=== PATIENT | female | born 1970 | race African-American/Black ===

== ENCOUNTER → 2016-09-05 | Outpatient (CLI) | payer MEDICARE, OTHER | LOC: OD 11:04 | PROVIDERS: ATTEND Nurse Practitioner Acute Care | DX: R10.9 Unspecified abdominal pain (principal) | CPT/HCPCS: 87086 ==

== ENCOUNTER → 2016-09-18 | Outpatient (CLI) | payer MEDICARE, OTHER | LOC: OD 08:58 | PROVIDERS: ATTEND Family Medicine | DX: M54.6 Pain in thoracic spine (principal) | CPT/HCPCS: 72070 ==

== ENCOUNTER → 2016-10-17 | Outpatient (CLI) | payer MEDICARE, OTHER ==
--- NOTE | 2016-10-17 12:53 | EKG REPORT ---
SEVERITY:- NORMAL ECG - SINUS RHYTHM : Confirmed by: Rasta Alcantara 17-Oct-2016 12:52:35
== END ==
LOC: OD 09:14
PROVIDERS: ATTEND Family Medicine
DX: Z01.818 Encounter for other preprocedural examination (principal)
CPT/HCPCS: 93005; 93010

== ENCOUNTER → 2017-01-21 | Outpatient (CLI) | payer MEDICARE, OTHER ==
[2017-01-21 12:51] LABS: ABSOLUTE BASOPHILS # (AUTO) 0.1 10^3/uL (0.0-0.2); ABSOLUTE EOSINOPHILS # (AUTO) 0.1 10^3/uL (0.0-0.6); ABSOLUTE LYMPHOCYTES (AUTO) 2.9 10^3/uL (0.5-4.7); ABSOLUTE MONOCYTES (AUTO) 0.4 10^3/uL (0.1-1.4); ABSOLUTE NEUT (AUTO) 2.3 10^3/uL (1.7-8.2); BASOPHILS % (AUTO) 1.1 % (0-2); EOSINOPHILS % (AUTO) 0.9 % (0-6); HEMATOCRIT 33.4 % (36.0-47.0); HEMOGLOBIN 10.7 g/dL (12.0-15.5); HGB HCT DIFFERENCE -1.3; LYMPHOCYTES % (AUTO) 50.8 % (13-45); MEAN CORPUSCULAR HEMOGLOBIN 26.2 pg (27.0-33.4); MEAN CORPUSCULAR HGB CONC 32.2 g/dL (32.0-36.0); MEAN CORPUSCULAR VOLUME 81 fl (80-97); MONOCYTES % (AUTO) 7.2 % (3-13); RED BLOOD COUNT 4.11 10^6/uL (3.72-5.28); RED CELL DISTRIBUTION WIDTH 13.4 % (11.5-14.0); WHITE BLOOD COUNT 5.7 10^3/uL (4.0-10.5)
[2017-01-21 13:05] LABS: ALANINE AMINOTRANSFERASE 71 U/L (9-52); ALBUMIN 4.2 g/dL (3.5-5.0); ALKALINE PHOSPHATASE 86 U/L (38-126); ANION GAP 11 (5-19); ASPARTATE AMINO TRANSFERASE 45 U/L (14-36); BILIRUBIN,DIRECT 0.4 mg/dL (0.0-0.4); BILIRUBIN,TOTAL 0.5 mg/dL (0.2-1.3); BLOOD UREA NITROGEN 16 mg/dL (7-20); CALCIUM 9.8 mg/dL (8.4-10.2); CARBON DIOXIDE 28 mmol/L (22-30); CHLORIDE 102 mmol/L (98-107); CREATININE RESULT 0.71 mg/dL (0.52-1.25); GLUCOSE 89 mg/dL (75-110); LIPASE 32.4 U/L (23-300); POTASSIUM 3.8 mmol/L (3.6-5.0); SODIUM 140.7 mmol/L (137-145); TOTAL PROTEIN 7.3 g/dL (6.3-8.2)
== END ==
LOC: OD 11:32
PROVIDERS: ATTEND Nurse Practitioner Acute Care
DX: R10.84 Generalized abdominal pain (principal)
CPT/HCPCS: 36415; 80053; 83690; 85025

== ENCOUNTER → 2017-05-02 | Outpatient (CLI) | payer MEDICARE, OTHER ==
--- NOTE | 2017-05-02 12:20 | WOMENS IMAGING REPORT ---
EXAM DESCRIPTION: BILAT SCREENING MAMMO W/CAD COMPLETED DATE/TIME: 05/02/2017 8:39 am REASON FOR STUDY: SCREENING MAMMO Z12.31 ENCNTR SCREEN MAMMOGRAM FOR MALIGNANT NEOPLASM OF NIGEL COMPARISON: Multiple mammograms since 2008 TECHNIQUE: Standard craniocaudal and mediolateral oblique views of each breast recorded using digita l acquisition. LIMITATIONS: None. FINDINGS: Findings present which are benign by mammographic criteria. No suspicious masses, calcifi cations or architectural distortion. Pertinent benign findings: Stable benign left retroareolar breast parenchymal calcification Read with the assistance of CAD. .[facility] - R2 Cenova Version 1.3 .[facility] Imaging - R2 Cenova Version 1.3 .[facility] - R2 Cenova Version 2.4 .[facility] - R2 Cenova Version 2.4 .[facility] - R2 Cost Control Supervisor Version 9.2 Benign mammographic findings may include one or more of the following: Smooth masses, popcorn/rim/co arse calcifications, asymmetries, post-procedure changes, and lesions with long-standing stability. IMPRESSION: BENIGN MAMMOGRAPHIC FINDINGS. BIRADS 2 BREAST DENSITY: b. There are scattered areas of fibroglandular density. BIRAD: 2 BENIGN FINDING(S) RECOMMENDATION: ROUTINE SCREENING Please consider bilateral screening tomosynthesis in May 2018 COMMENT: The patient has been notified of the results by letter per MQSA requirements. Additional no tification policies are in place for contacting patient with suspicious or incomplete findings. Quality ID #[id number]: The [employer] recommends an annual screening mammogram for women aged 40 years or over. This facility utilizes a reminder system to ensure that all patients receive reminder letters, and/or direct phone calls for appointments. This includes reminders for routine scr eening mammograms, diagnostic mammograms, or other Breast Imaging Interventions when appropriate. Th is patient will be placed in the appropriate reminder system. The [employer] (ACR) has developed recommendations for screening MRI of the breast s in certain patient populations, to be used in conjunction with mammography. Breast MRI surveillanc e may be appropriate for women with more than 20% lifetime risk of developing breast cancer as deter mined by genetic testing, significant family history of the disease, or history of mantle radiation f or Hodgkins Disease. ACR Practice Guidelines 2008. TECHNICAL DOCUMENTATION: FINDING NUMBER: (1) ASSESSMENT: (1) JOB ID: [id number] [employer])- All Rights Reserved
== END ==
LOC: WI 08:09
PROVIDERS: ATTEND Family Medicine
DX: Z12.31 Encounter for screening mammogram for malignant neoplasm of breast (principal)
CPT/HCPCS: 77067; G0202

== ENCOUNTER → 2017-10-17 | Outpatient (CLI) | payer MEDICARE, OTHER ==
--- NOTE | 2017-10-17 16:55 | RADIOLOGY REPORT (SQ) ---
EXAM DESCRIPTION: HAND RIGHT 3 VIEWS COMPLETED DATE/TIME: 10/17/2017 4:41 pm REASON FOR STUDY: PAIN IN RIGHT HAND M79.641 PAIN IN RIGHT HAND COMPARISON: None. EXAM PARAMETERS: NUMBER OF VIEWS: Three views. TECHNIQUE: AP, lateral and oblique radiographic images acquired of the right hand. LIMITATIONS: None. FINDINGS: MINERALIZATION: Normal. BONES: No acute fracture or dislocation. No worrisome bone lesions. JOINTS: Joint spaces maintained. SOFT TISSUES: No metallic foreign bodies. OTHER: No other significant finding. IMPRESSION: Nothing acute. No fracture identified. TECHNICAL DOCUMENTATION: JOB ID: [id number] [employer]- All Rights Reserved
== END ==
LOC: OD 16:27
PROVIDERS: ATTEND Family Medicine
DX: M79.641 Pain in right hand (principal)

== ENCOUNTER → 2018-02-24 | Outpatient (CLI) | payer MEDICARE, OTHER ==
--- NOTE | 2018-02-24 12:03 | RADIOLOGY REPORT (SQ) ---
EXAM DESCRIPTION: SHOULDER RIGHT 2 OR MORE VIEWS COMPLETED DATE/TIME: 02/24/2018 11:15 am REASON FOR STUDY: PAIN IN RIGHT SHOULDER M25.511 PAIN IN RIGHT SHOULDER COMPARISON: None. NUMBER OF VIEWS: Three views. TECHNIQUE: Internal rotation, external rotation, and Y view images acquired of the right shoulder. LIMITATIONS: None. FINDINGS: MINERALIZATION: Osteopenic BONES: No acute fracture or dislocation. No worrisome bone lesions. JOINTS: No acromioclavicular joint widening. No glenohumeral joint dislocation. VISUALIZED LUNGS AND RIBS: No pneumothorax. No rib fracture. SOFT TISSUES: No radiopaque foreign body. OTHER: No other significant finding. IMPRESSION: No acute fracture or malalignment. No narrowing of the subacromial space. No bulky bon y spurring. TECHNICAL DOCUMENTATION: JOB ID: [id number] [employer]- All Rights Reserved Reading location - IP/workstation name: [email or web address]
== END ==
LOC: OD 10:54
PROVIDERS: ATTEND Family Medicine
DX: M25.511 Pain in right shoulder (principal)

== ENCOUNTER → 2018-06-10 | Outpatient (CLI) | payer MEDICARE, OTHER ==
--- NOTE | 2018-06-10 16:59 | WOMENS IMAGING REPORT ---
EXAM DESCRIPTION: BILAT SCREENING MAMMO W/CAD COMPLETED DATE/TIME: 06/10/2018 7:47 am REASON FOR STUDY: SCREENING MAMMO Z12.31 ENCNTR SCREEN MAMMOGRAM FOR MALIGNANT NEOPLASM OF NIGEL COMPARISON: 2008 through 2016. TECHNIQUE: Standard craniocaudal and mediolateral oblique views of each breast recorded using digita l acquisition. LIMITATIONS: None. FINDINGS: No masses, calcifications or architectural distortion. No areas of suspicion. Read with the assistance of CAD. .[facility] - R2 Cenova Version 1.3 .[facility] Imaging - R2 Cenova Version 1.3 .[facility] - R2 Cenova Version 2.4 .[facility] [place] R2 Cenova Version 2.4 .[facility] - R2 Patient Transport Officer Version 9.2 IMPRESSION: NORMAL MAMMOGRAM. BIRADS 1. BREAST DENSITY: c. The breasts are heterogeneously dense, which may obscure small masses. BIRAD: 1 NEGATIVE RECOMMENDATION: ROUTINE SCREENING COMMENT: The patient has been notified of the results by letter per SA requirements. Additional no tification policies are in place for contacting patient with suspicious or incomplete findings. Quality ID #[id number]: The [employer] recommends an annual screening mammogram for women aged 40 years or over. This facility utilizes a reminder system to ensure that all patients receive reminder letters, and/or direct phone calls for appointments. This includes reminders for routine scr eening mammograms, diagnostic mammograms, or other Breast Imaging Interventions when appropriate. Th is patient will be placed in the appropriate reminder system. The [employer] (ACR) has developed recommendations for screening MRI of the breast s in certain patient populations, to be used in conjunction with mammography. Breast MRI surveillanc e may be appropriate for women with more than 20% lifetime risk of developing breast cancer as deter mined by genetic testing, significant family history of the disease, or history of mantle radiation f or Hodgkins Disease. ACR Practice Guidelines 2008. TECHNICAL DOCUMENTATION: FINDING NUMBER: (1) ASSESSMENT: (1) JOB ID: [id number] [employer]- All Rights Reserved Reading location - IP/workstation name: [email or web address]
== END ==
LOC: WI 07:35
PROVIDERS: ATTEND Family Medicine
DX: Z12.31 Encounter for screening mammogram for malignant neoplasm of breast (principal)
CPT/HCPCS: 77067

== ENCOUNTER → 2019-05-21 | Outpatient (CLI) | payer MEDICARE, OTHER ==
--- NOTE | 2019-05-21 13:08 | RADIOLOGY REPORT (SQ) ---
EXAM DESCRIPTION: NM BONE SCAN LIMITED COMPLETED DATE/TIME: 05/21/2019 12:53 pm REASON FOR STUDY: L4 LESION SEEN ON CT (05/14/19), LUMBAR PAIN (M54.5) M54.5 LOW BACK PAIN COMPARISON: Outside CT lumbar spine RADIONUCLIDE AND DOSE: 21.5 millicuries Tc99m HDP. The route of agent administration: Intravenous. ADDITIONAL DRUGS AND DOSES: None. TECHNIQUE: Routine delayed images at 3 hour post radionuclide injection acquired of the bony skeleto n including anterior and posterior whole-body projections and additional focused images as needed. LIMITATIONS: None. FINDINGS: BONES: Mild increased uptake at L5. This in keeping with facet arthropathy demonstrated o n outside CT. There is mild increased uptake in the mid dorsal spine this appears to be T7-T8 most l ikely degenerative as well review of plain films September 18 reveal degenerative changes throughout the dorsal spine no obvious compression. KIDNEYS: Symmetric excretion without obstruction. OTHER: No other significant finding. IMPRESSION: Uptake at L5 consistent with facet arthropathy. The uptake is symmetric bilaterally. Uptake in the mid dorsal spine most likely degenerative as well. If the patient has symptoms correla tion with MRI or CT is recommended for further evaluation. COMMENT: Quality measure 147: Current bone scan is compared with any available plain radiographs, p rior bone scans, and CT/MRI. TECHNICAL DOCUMENTATION: JOB ID: [id number] [employer]- All Rights Reserved Reading location - IP/workstation name: [email or web address]
== END ==
LOC: RAD 08:34
PROVIDERS: ATTEND Neurological Surgery
DX: M46.86 Other specified inflammatory spondylopathies, lumbar region (principal); M54.5 Low back pain
CPT/HCPCS: 78305; A9561; Q9969

== ENCOUNTER → 2019-08-27 | Outpatient (CLI) | payer MEDICARE, OTHER ==
--- NOTE | 2019-08-30 12:32 | WOMENS IMAGING REPORT ---
EXAM DESCRIPTION: BILAT SCREENING MAMMO W/CAD COMPLETED DATE/TIME: 08/27/2019 10:55 am REASON FOR STUDY: Z12.31 SCREENING MAMMO Z12.31 ENCNTR SCREEN MAMMOGRAM FOR MALIGNANT NEOPLASM OF B RE COMPARISON: 06/10/2018 and 05/02/2017. EXAM PARAMETERS: Standard craniocaudal and mediolateral oblique views of each breast recorded using digital acquisition. Read with the assistance of CAD. .[facility] - [email or web address] Educational Specialist Version 9.2 LIMITATIONS: None. FINDINGS: No suspicious masses, suspicious calcifications or architectural distortion. No areas of c oncern. IMPRESSION: Negative MAMMOGRAM. BIRADS 1 BREAST DENSITY: b. There are scattered areas of fibroglandular density. BIRAD: ASSESSMENT: 1 NEGATIVE RECOMMENDATION: ROUTINE SCREENING COMMENT: The patient has been notified of the results by letter per MQSA requirements. Additional no tification policies are in place for contacting patient with suspicious or incomplete findings. Quality ID #[id number]: The [employer] recommends an annual screening mammogram for women aged 40 years or over. This facility utilizes a reminder system to ensure that all patients receive reminder letters, and/or direct phone calls for appointments. This includes reminders for routine scr eening mammograms, diagnostic mammograms, or other Breast Imaging Interventions when appropriate. Th is patient will be placed in the appropriate reminder system. TECHNICAL DOCUMENTATION: FINDING NUMBER: (1) ASSESSMENT: (1) JOB ID: [id number] [employer] All Rights Reserved Reading location - IP/workstation name: [email or web address]
== END ==
LOC: WI 10:15
PROVIDERS: ATTEND Family Medicine
DX: Z12.31 Encounter for screening mammogram for malignant neoplasm of breast (principal)
CPT/HCPCS: 77067

== ENCOUNTER → 2019-09-13 | Outpatient (CLI) | payer MEDICARE, OTHER ==
--- NOTE | 2019-09-13 17:09 | RADIOLOGY REPORT (SQ) ---
EXAM DESCRIPTION: MRI HEAD COMBO COMPLETED DATE/TIME: 09/13/2019 4:56 pm REASON FOR STUDY: (Z86.011)PERSONAL HISTORY OF BENIGN NEOPLASM OF THE BRAIN Z86.011 PERSONAL HISTOR Y OF BENIGN NEOPLASM OF THE BRAIN COMPARISON: 12/25/2012, 09/09/2011 TECHNIQUE: Multiplanar imaging includes noncontrasted T1, T2, FLAIR, diffusion with ADC map and post gadolinium contrast T1 sequences. Images stored on PACS. CONTRAST TYPE AND DOSE: 10 mL mL Dotarem. RENAL FUNCTION: Not indicated. ACR Type II contrast agent associated with few, if any, unconfounded cases of NSF LIMITATIONS: None. FINDINGS: ANATOMY: No anomalies. Normal vascular flow voids. Pituitary fossa normal. CSF SPACES: Normal in size and contour. No hemorrhage. CEREBRUM: Sulci and gyri normal in size and contour. Normal white matter signal on FLAIR imaging. No evidence of hemorrhage, mass, or extraaxial fluid collection. No abnormal enhancement post contrast. POSTERIOR FOSSA: No signal alteration. No hemorrhage. No edema, masses, or mass effect. Internal jabari tory canals, cerebellopontine angles, mastoids normal. No enhancing lesions. No abnormal enhancement post contrast. Low lying right cerebellar tonsil is again noted. DIFFUSION IMAGING: Negative for acute or subacute infarction. ORBITS: No masses. Globes normal. PARANASAL SINUSES: Mucous retention cyst or polyp is again noted in the left maxillary sinus. OTHER: No other significant finding. IMPRESSION: 1. No acute intracranial event. 2. Stable low lying right cerebellar tonsil. 3. Stable mucous retention cyst or polyp in the left maxillary sinus. EVIDENCE OF ACUTE STROKE: NO. TECHNICAL DOCUMENTATION: JOB ID: [id number] [employer]- All Rights Reserved Reading location - IP/workstation name: [email or web address]-[email or web address]
== END ==
LOC: RAD 16:02
PROVIDERS: ATTEND Pain Medicine Pain Medicine
DX: J34.89 Other specified disorders of nose and nasal sinuses (principal); Z86.011 Personal history of benign neoplasm of the brain
CPT/HCPCS: 70553; A9576

== ENCOUNTER → 2020-09-21 | Outpatient (CLI) | payer MEDICARE, OTHER ==
--- OUTSIDE RECORDS SUMMARY | 2020-09-21 08:40 | XMS REPORT ---
:1970 Author Organization [facility] Address [facility] [place] [address] [place] [address] Care Team Providers Name Role Phone Sergio Carrillo Primary Care Physician Unavailable FRANCISCO MUÑOZ Attending Clinician Unavailable JERARDO GODFREY Attending Clinician Unavailable IRA MCGILL Attending Clinician Unavailable ESTEFANY Attending Clinician Unavailable Lorena Attending Clinician Unavailable Lorena Attending Clinician Unavailable Allergies, Adverse Reactions, Alerts Allergy Allergy Status Severity Reaction(s) Onset Inactive Treating C omments Name Type Date Date Clinician Iodinated Propensity Active Hives 2019-09 Contrast to adverse 1-04 Media reactions 00:00: to drug 00 Potassium Propensity Active Hives 1 to adverse 1-04 reactions 00:00: to drug 00 Ampicillin Propensity Active Rash 2020-0 to adverse 3-19 reactions 00:00: to drug 00 Camp And Propensity Active Rash 2020-0 Derivatives to adverse 3-19 reactions 00:00: to drug 00 Camp And Propensity Inactive Rash 2020-0 Derivatives to adverse 3-19 reactions 00:00: to drug 00 Shellfish Propensity Active Rash 2020-0 Containing to adverse 3-19 Products reactions 00:00: to drug 00 Ampicillin Allergy to Active Moderate Hives 2011-09 substance - 00:00: 00 Iodinated Allergy to Active Moderate Hives 2011-09 Contrast substance -15 Media 00:00: 00 Iodine Allergy to Active Moderate Hives 2011-09 substance 09-15 00:00: 00 Potassium Allergy to Active Moderate Hives 2011-09 substance 09-15 00:00: 00 Shellfish Allergy to Active Derived substance Medications Ordered Filled Start Stop Current Ordering Indication Dosage Frequency Signature Comments Components Medication Medication Date Date Medication? Clinician (SIG) Name Name tiZANidine 2020-0 Yes 2mg Q.[id number] Take 0.5- 1 (ZANAFLEX) 9-24 [id number] tablets 4 MG tablet 00:00: 3D (2-4 mg 00 total) by mouth 3 (three) times daily as needed HYDROcodone 2020-0 Yes 1{tbl} Q.48814929 Take 1 -acetaminop 8-31 [id number] tablet by hen (NORCO) 00:00: 3D mouth 3 5-325 mg 00 (three) tablet times daily as needed Patient taking due to surgery. predniSONE 2020-0 Yes 20mg Q.5D Take 20 mg (DELTASONE) 8-22 by mouth 2 20 MG 00:00: (two) tablet 00 times daily For 5 days. 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 2{each} QD Take 2 mium each by picolinate mouth once 2-100 daily gram-mcg Chew biotin 1 mg Yes 1{capsu QD Take 1 Cap le} capsule by mouth once daily docusate Yes 100mg QD Take 100 (COLACE) mg by 100 MG mouth once capsule daily baclofen 10 No baclofen mg tablet 10 mg tablet diazepam 5 No diazepam 5 mg tablet mg tablet diclofenac No diclofenac sodium 75 sodium 75 mg mg tablet,suhas tablet,del yed release ayed TAKE 1 release TABLET BY TAKE 1 MOUTH TWICE TABLET BY A DAY MOUTH TWICE A DAY Gavilyte-C No Gavilyte-C 240 240 gram-22.72 gram-22.72 gram-6.72 gram-6.72 gram-5.84 gram-5.84 gram oral gram oral solution solution losartan No losartan 100 100 mg-hydrochl mg-hydroch orothiazide lorothiazi 12.5 mg de 12.5 mg tablet TK 1 tablet TK T PO QD 1 T PO QD meloxicam No meloxicam 15 mg 15 mg tablet TK 1 tablet TK T PO QD 1 T PO QD pantoprazol No pantoprazo e 20 mg le 20 mg tablet,suhas tablet,del yed release ayed TAKE 1 release TABLET BY TAKE 1 MOUTH ONCE TABLET BY DAILY MOUTH ONCE DAILY prednisone No prednisone 20 mg 20 mg tablet tablet tizanidine No tizanidine 4 mg tablet 4 mg tablet tramadol 50 No tramadol mg tablet 50 mg Take 1 q tablet 6-8 hrs PRN Take 1 q pain max 2 6-8 hrs per day PRN pain DNFU max 2 per 03/30/20 day DNFU 03/30/20 pregabalin No pregabalin 50 mg 50 mg capsule capsule duloxetine No duloxetine 20 mg 20 mg capsule,del capsule,de ayed layed release release TAKE 1 TAKE 1 CAPSULE BY CAPSULE BY MOUTH ONCE MOUTH ONCE DAILY X6 DAILY X6 WK, 2 WK, 2 CAPSULES CAPSULES ONCE DAILY ONCE DAILY X6 WK, THEN X6 WK, 3CAPS ONCE THEN 3CAPS DAILY ONCE DAILY duloxetine No duloxetine 30 mg 30 mg capsule,del capsule,de ayed layed release release hydroxyzine No hydroxyzin pamoate 25 e pamoate mg capsule 25 mg capsule DOK 100 mg No DOK 100 mg capsule capsule hydrocodone No hydrocodon 5 e 5 mg-acetamin mg-acetami ophen 325 nophen 325 mg tablet mg tablet Take 1 q Take 1 q 6-8 hrs PRN 6-8 hrs pain PRN pain polyethylen No polyethyle e glycol ne glycol 3350 17 3350 17 gram/dose gram/dose oral powder oral MIX 1 powder MIX CAPFUL WITH 1 CAPFUL 8 OUNCES OF WITH 8 FLUID AND OUNCES OF TK D FLUID AND TK D Tylenol No Tylenol Arthritis Arthritis Pain 650 mg Pain 650 tablet,exte mg nded tablet,ext release ended release aspirin 325 No aspirin mg tablet 325 mg Take 1 tablet tablet(s) Take 1 EVERY DAY tablet(s) by oral EVERY DAY route for by oral 10 days route for starting 3 10 days days after starting 3 surgery days after surgery Colace 100 No 1capsul BID Colace 100 mg capsule e(s) mg capsule Take 1 Take 1 capsule capsule twice a day twice a by oral day by route as oral route needed for as needed 10 days. for 10 days. buprenorphi No 1patch( Q1W buprenorph ne 5 es) ine 5 mcg/hour mcg/hour weekly weekly transdermal transderma patch APPLY l patch 1 PATCH APPLY 1 EXTERNALLY PATCH TO THE SKIN EXTERNALLY EVERY WEEK TO THE SKIN EVERY WEEK oxycodone-a No 1 Q5H oxycodone- cetaminophe acetaminop n 5 mg-325 hen 5 mg tablet mg-325 mg Take 1 tablet tablet Take 1 every 4-6 tablet hours by every 4-6 oral route hours by as needed. oral route as needed. 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) 00 Spastic Spastic Problem Active paralysis Paralysis 1-07 00:00: 00 Thoracic Thoracic Problem Active 2017-09 spondylosis Spondylosis 1-06 without without 00:00: myelopathy Myelopathy 00 Lumbosacral Lumbosacral Problem Active spondylosis Spondylosis 3-27 without without 00:00: myelopathy Myelopathy 00 Osteoarthri Osteoarthri Problem Active tis of knee tis of Knee 5-04 00:00: 00 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 of 1-20 patella Patella 00:00: 00 Chondromala Chondromala Problem Active 2013-09 danyel danyel 1-20 00:00: 00 Derangement Derangement Problem Active of knee of Knee 6-13 00:00: 00 Anemia Anemia Problem Active 2011-09 00:00: 00 Knee pain Knee Pain Problem Active 2011-09 00:00: 00 History of History of Problem Active 2011-09 cardiovascu Cardiovascu 1-15 lar disease lar Disease 00:00: 00 Procedures Procedure Date / Time Performed Performing Clinician Isac ruffin XR, lumbar spine 2020-08-18 00:00:00 XR, lumbar spine 2020-07-11 00:00:00 Lumbar Spine Surgery (Surg) 2020-06-26 00:00:00 CT, lumbar spine, w/o contrast 2020-05-23 00:00:00 lumbar spine surgery (SURG) 2020-05-23 00:00:00 XR, lumbar spine 2020-05-01 00:00:00 MRI, lumbar spine, w/o contrast 2020-05-01 00:00:00 XR, lumbar spine 2020-02-29 00:00:00 MRI, brain, w/wo contrast 2019-08-31 00:00:00 OFFICE/OUTPATIENT VISIT EST 2019-08-19 13:30:00 MRI, lumbar spine, w/o contrast 2019-07-27 00:00:00 MRI, thoracic spine, w/o contrast 2019-07-27 00:00:00 OFFICE/OUTPATIENT VISIT EST 2018-06-08 08:15:00 OFFICE/OUTPATIENT VISIT EST 2017-11-17 10:45:00 OFFICE/OUTPATIENT VISIT EST 2017-10-17 15:15:00 Repair, Collateral Ligament (Surg) 2017-05-07 00:00:00 OFFICE/OUTPATIENT VISIT EST 2017-01-28 10:15:00 Hand Surgery 2016-09-01 00:00:00 Foot/Ankle Surgery 1993-09-01 00:00:00 Cholecystectomy Knee Surgery Other Hysterectomy HIP ARTHROSCOPY DX KNEE ARTHROSCOPY/SURGERY Ankle Surgery Results Test Description Test Time Test Comments Text Results Atomic Results Result Comments HEMOGLOBIN AND HEMATOCRIT 2020-06-27 03:56:00 Test Item Value Reference Range Comments Hct VFr Bld Auto (test code = 4544-3) 34.7 % 34.1-44.9 Hgb Bld-mCnc (test code = 718-7) 10.5 g/dL 11.2-15.7 IRON AND IRON BINDING CAPACITY [id number] 09:00:00 Test Item Value Reference Range Comments Iron Satn MFr SerPl (test code = 2502-3) 20 % 20-50 TIBC SerPl-mCnc (test code = 2500-7) 253 ug/dL 250-425 Iron SerPl-mCnc (test code = 2498-4) 50 ug/dL 50-175 [id number] 09:00:00 Test Item Value Reference Range Comments Ferritin SerPl-mCnc (test code = 2276-4) 134.0 ng/mL 7.3-307 .3 HEMOGLOBIN AND [id number] 09:00:00 Test Item Value Reference Range Comments Hct VFr Bld Auto (test code = 4544-3) 33.5 % 34.1-44.9 Hgb Bld-mCnc (test code = 718-7) 10.1 g/dL 11.2-15.7 [id number] 08:41:00 Test Item Value Reference Range Comments Ferritin SerPl-mCnc (test code = 2276-4) 189.8 ng/mL 7.3-307 .3 IRON AND IRON BINDING CAPACITY [id number] 08:41:00 Test Item Value Reference Range Comments TIBC SerPl-mCnc (test code = 2500-7) 297 ug/dL 250-425 Iron Satn MFr SerPl (test code = 2502-3) 33 % 20-50 Iron SerPl-mCnc (test code = 2498-4) 99 ug/dL 50-175 Hemoglobin and Hematocrit panel - [id number] 08:41:00 Test Item Value Reference Range Comments Hemoglobin [Mass/volume] in Blood (test code = 11.3 g/dL 1 1.2-15.7 718-7) Hematocrit [Volume Fraction] of Blood by Automated 35.6 % 34.1-44.9 count (test code = 4544-3) [id number] 08:41:00 Test Item Value Reference Range Comments Creatinine [Mass/volume] in Serum or Plasma (test 0.87 mg/dL 0.55-1.02 code = 2160-0) Glomerular filtration rate/1.73 sq M.predicted >=60 [Volume Rate/Area] in Serum or Plasma by Creatinine-based formula (MDRD) (test code = 93658-1) CBC (INCLUDES DIFF/PLT)2019-01-14 10:51:00 Test Item Value Reference Range Comments MPV (test code = 82612400) 11.7 fL 7.5-12.5 HEMOGLOBIN (test code = 31704568) 11.6 g/dL 11.7-15.5 ABSOLUTE NEUTROPHILS (test code = 85664814) 2602 cells/uL 1500 -7800 ABSOLUTE BASOPHILS (test code = 66209964) 61 cells/uL 0-200 RED BLOOD CELL COUNT (test code = 89694890) 4.37 Million/uL 3.80 -5.10 PLATELET COUNT (test code = 00562921) 304 Thousand/uL 140-400 MCH (test code = 03411370) 26.5 pg 27.0-33.0 ABSOLUTE LYMPHOCYTES (test code = 68036991) 2448 cells/uL 850- 3900 MONOCYTES (test code = 92639375) 6.6 % LYMPHOCYTES (test code = 54476656) 44.5 % EOSINOPHILS (test code = 40733878) 0.5 % RDW (test code = 34365635) 12.7 % 11.0-15.0 ABSOLUTE EOSINOPHILS (test code = 50505935) 28 cells/uL 15-5 00 HEMATOCRIT (test code = 28714648) 35.7 % 35.0-45.0 MCV (test code = 85494318) 81.7 fL 80.0-100.0 WHITE BLOOD CELL COUNT (test code = 5.5 Thousand/uL 3.8-10.8 64274469) MCHC (test code = 87469739) 32.5 g/dL 32.0-36.0 NEUTROPHILS (test code = 61083072) 47.3 % ABSOLUTE MONOCYTES (test code = 35336047) 363 cells/uL 200-95 0 BASOPHILS (test code = 02966096) 1.1 % BASIC METABOLIC [id number] 11:13:00 Test Item Value Reference Range Comments POTASSIUM (test code = 59682702) 4.0 mmol/L 3.5-5.3 eGFR (test code = 74 mL/min/1.73m2 > OR = 60 74960251) GLUCOSE (test code = 28669435) 87 mg/dL 65-99 CARBON DIOXIDE (test code = 82931136) 30 mmol/L 20-32 BUN/CREATININE RATIO (test code = NOT APPLICABLE (calc) 6-22 93679231) CHLORIDE (test code = 33209956) 102 mmol/L 98-110 eGFR NON-AFR. AFGHAN (test code = 64 mL/min/1.73m2 > OR = 60 36965585) SODIUM (test code = 48816465) 138 mmol/L 135-146 CALCIUM (test code = 64623923) 9.9 mg/dL 8.6-10.4 CREATININE (test code = 69235676) 1.02 mg/dL 0.50-1.05 UREA NITROGEN (BUN) (test code = 23 mg/dL 7- 69835211) BASIC METABOLIC [id number] 08:45:00 Test Item Value Reference Range Comments CALCIUM (test code = 92904204) 9.8 mg/dL 8.6-10.4 CHLORIDE (test code = 49404786) 105 mmol/L 98-110 UREA NITROGEN (BUN) (test code = 21 mg/dL 7-25 55485241) SODIUM (test code = 22762385) 140 mmol/L 135-146 CARBON DIOXIDE (test code = 14423021) 27 mmol/L 20-32 POTASSIUM (test code = 19840959) 3.8 mmol/L 3.5-5.3 GLUCOSE (test code = 66766830) 99 mg/dL 65-99 BUN/CREATININE RATIO (test code = NOT APPLICABLE (calc) 6-22 35866815) eGFR (test code = 76 mL/min/1.73m2 > OR = 60 54780508) CREATININE (test code = 62609764) 1.00 mg/dL 0.50-1.05 eGFR NON-AFR. AFGHAN (test code = 66 mL/min/1.73m2 > OR = 60 51687604) [id number] 09:51:82113GTBMZC CELL [id number] 09:51:00NEGATIVE COMPREHENSIVE METABOLIC [id number] 09:51:00 Test Item Value Reference Range Comments eGFR (test code = 52 mL/min/1.73m2 > OR = 60 18818208) CREATININE (test code = 87908521) 1.37 mg/dL 0.50-1.05 ALT (test code = 89497599) 14 U/L 6-29 CALCIUM (test code = 65813591) 10.1 mg/dL 8.6-10.4 POTASSIUM (test code = 79217590) 4.1 mmol/L 3.5-5.3 ALBUMIN/GLOBULIN RATIO (test code = 1.4 (calc) 1.0-2.5 90626435) UREA NITROGEN (BUN) (test code = 13890288) 17 mg/dL 7-25 BUN/CREATININE RATIO (test code = 31817312) 12 (calc) 6-22 PROTEIN, TOTAL (test code = 81803910) 7.4 g/dL 6.1-8.1 AST (test code = 09822032) 19 U/L 10-35 eGFR NON-AFR. AFGHAN (test code = 45 mL/min/1.73m2 > OR = 60 37002611) ALKALINE PHOSPHATASE (test code = 41427246) 65 U/L 33-1 30 GLUCOSE (test code = 11058738) 97 mg/dL 65-99 ALBUMIN (test code = 48261194) 4.3 g/dL 3.6-5.1 SODIUM (test code = 33597510) 140 mmol/L 135-146 CARBON DIOXIDE (test code = 35222316) 30 mmol/L 20-32 GLOBULIN (test code = 33057045) 3.1 g/dL (calc) 1.9-3.7 BILIRUBIN, TOTAL (test code = 64087954) 0.4 mg/dL 0.2-1.2 CHLORIDE (test code = 41435274) 102 mmol/L 98-110 CBC (INCLUDES DIFF/PLT)2018-09-24 09:51:00 Test Item Value Reference Range Comments EOSINOPHILS (test code = 61565427) 1.3 % HEMATOCRIT (test code = 45461939) 34.6 % 35.0-45.0 WHITE BLOOD CELL COUNT (test code = 3.8 Thousand/uL 3.8-10.8 77167909) MCH (test code = 04898774) 26.3 pg 27.0-33.0 MCHC (test code = 47818764) 32.9 g/dL 32.0-36.0 HEMOGLOBIN (test code = 27974814) 11.4 g/dL 11.7-15.5 NEUTROPHILS (test code = 26358547) 36.2 % ABSOLUTE EOSINOPHILS (test code = 99242043) 49 cells/uL 15-5 00 MONOCYTES (test code = 55448695) 9.0 % MCV (test code = 58391761) 79.7 fL 80.0-100.0 ABSOLUTE MONOCYTES (test code = 43580901) 342 cells/uL 200-95 0 RED BLOOD CELL COUNT (test code = 38150973) 4.34 Million/uL 3.80 -5.10 ABSOLUTE BASOPHILS (test code = 09449430) 91 cells/uL 0-200 MPV (test code = 42210616) 12.7 fL 7.5-12.5 PLATELET COUNT (test code = 75865047) 272 Thousand/uL 140-400 ABSOLUTE LYMPHOCYTES (test code = 59005376) 1942 cells/uL 850- 3900 BASOPHILS (test code = 67850325) 2.4 % RDW (test code = 26754612) 13.0 % 11.0-15.0 ABSOLUTE NEUTROPHILS (test code = 11407141) 1376 cells/uL 1500 -7800 LYMPHOCYTES (test code = 42867472) 51.1 % VITAMIN [id number] 09:51:76869YCPB AND TOTAL IRON BINDING [id number] 09:51:00 Test Item Value Reference Range Comments % SATURATION (test code = 36414726) 47 % (calc) 11-50 IRON, TOTAL (test code = 81392995) 125 mcg/dL 45-160 IRON BINDING CAPACITY (test code = 267 mcg/dL (calc) 250-450 98717819) HEMOGLOBIN A1c WITH [id number] 08:56:00 Test Item Value Reference Range Comments eAG (mg/dL) (test code = 79429477) 108 (calc) HEMOGLOBIN A1c (test code = 33089341) 5.4 % of total Hgb <5.7 eAG (mmol/L) (test code = 03354934) 6.0 (calc) COMPREHENSIVE METABOLIC [id number] 08:56:00 Test Item Value Reference Range Comments CREATININE (test code = 17116298) 0.81 mg/dL 0.50-1.05 POTASSIUM (test code = 86858852) 4.2 mmol/L 3.5-5.3 ALT (test code = 58402779) 41 U/L 6-29 UREA NITROGEN (BUN) (test code = 12 mg/dL 7-25 11944329) GLUCOSE (test code = 85165442) 93 mg/dL 65-99 ALKALINE PHOSPHATASE (test code = 88 U/L 33-130 70042084) CARBON DIOXIDE (test code = 16174161) 29 mmol/L 20-32 ALBUMIN (test code = 30329302) 4.3 g/dL 3.6-5.1 eGFR NON-AFR. AFGHAN (test code = 85 mL/min/1.73m2 > OR = 60 54743848) ALBUMIN/GLOBULIN RATIO (test code = 1.5 (calc) 1.0-2.5 17498327) BILIRUBIN, TOTAL (test code = 0.3 mg/dL 0.2-1.2 01125143) SODIUM (test code = 93492530) 140 mmol/L 135-146 AST (test code = 83662971) 28 U/L 10-35 BUN/CREATININE RATIO (test code = NOT APPLICABLE (calc) 6-22 36406262) PROTEIN, TOTAL (test code = 60928691) 7.1 g/dL 6.1-8.1 GLOBULIN (test code = 40573270) 2.8 g/dL (calc) 1.9-3.7 CALCIUM (test code = 26051044) 9.8 mg/dL 8.6-10.4 eGFR (test code = 98 mL/min/1.73m2 > OR = 60 35551227) CHLORIDE (test code = 55073423) 105 mmol/L 98-110 LIPID PANEL WITH REFLEX TO DIRECT [id number] 08:56:00 Test Item Value Reference Range Comments TRIGLYCERIDES (test code = 14552078) 54 mg/dL <150 CHOLESTEROL, TOTAL (test code = 03236163) 172 mg/dL <200 NON HDL CHOLESTEROL (test code = 48740552) 109 mg/dL (calc) <130 CHOL/HDLC RATIO (test code = 34924766) 2.7 (calc) <5.0 LDL-CHOLESTEROL (test code = 30157235) 95 mg/dL (calc) HDL CHOLESTEROL (test code = 39010693) 63 mg/dL >50 [id number] 08:56:000.50CBC (H/H, RBC, INDICES, WBC, PLT)2018-06-08 08:56:00 Test Item Value Reference Range Comments MCH (test code = 48525017) 26.1 pg 27.0-33.0 RDW (test code = 87290760) 13.3 % 11.0-15.0 HEMOGLOBIN (test code = 94197812) 11.3 g/dL 11.7-15.5 PLATELET COUNT (test code = 69849851) 285 Thousand/uL 140-400 MCV (test code = 04116787) 80.6 fL 80.0-100.0 MPV (test code = 68111579) 12.5 fL 7.5-12.5 MCHC (test code = 23169001) 32.4 g/dL 32.0-36.0 HEMATOCRIT (test code = 27960066) 34.9 % 35.0-45.0 WHITE BLOOD CELL COUNT (test code = 4.3 Thousand/uL 3.8-10.8 01921958) RED BLOOD CELL COUNT (test code = 23709075) 4.33 Million/uL 3.80 -5.10 Rapid Strep\S\2017-10-09 12:05:00 Test Item Value Reference Range Comments Rapid Strep (test code = RAPIDSTREP) Negative N/A LIPASE\[id number] 11:45:00 Test Item Value Reference Range Comments LIPASE (test code = LIPA) 32.4 U/L 23-300 COMPREHENSIVE METABOLIC PANEL\[id number] 11:45:00 Test Item Value Reference Range Comments EGFR, (test code = GFRAA) > 60 >60 ALBUMIN (test code = ALB) 4.2 g/dL 3.5-5.0 ASPARTATE AMINO TRANSFERASE (test code = AST) 45 U/L 14 -36 CARBON DIOXIDE (test code = CO2) 28 mmol/L 22-30 SODIUM (test code = NA) 140.7 mmol/L 137-145 ALKALINE PHOSPHATASE (test code = ALKP) 86 U/L 38-126 CHLORIDE (test code = CL-1) 102 mmol/L 98-107 TOTAL PROTEIN (test code = TP) 7.3 g/dL 6.3-8.2 EGFR,NON (test code = GFRN) > 60 >60 ALANINE AMINOTRANSFERASE (test code = ALT) 71 U/L 9-52 BLOOD UREA NITROGEN (test code = BUN) 16 mg/dL 7-20 BILIRUBIN,DIRECT (test code = BC) 0.4 mg/dL 0.0-0.4 ANION GAP (test code = ANION) 11 5-19 GLUCOSE (test code = GLU) 89 mg/dL 75-110 BILIRUBIN,TOTAL (test code = TBIL) 0.5 mg/dL 0.2-1.3 CALCIUM (test code = CA) 9.8 mg/dL 8.4-10.2 CREATININE RESULT (test code = CREA) 0.71 mg/dL 0.52-1.25 POTASSIUM (test code = K) 3.8 mmol/L 3.6-5.0 CBC WITH DIFF\[id number] 11:45:00 Test Item Value Reference Range Comments PLATELET COUNT (test code = PLT) 234 10 3/uL 150-450 HEMATOCRIT (test code = HCT) 33.4 % 36.0-47.0 RED BLOOD COUNT (test code = RBC) 4.11 10 6/uL 3.72-5.28 MEAN CORPUSCULAR HEMOGLOBIN (test code = MCH) 26.2 pg 27 .0-33.4 SEGMENTED NEUTROPHILS % (AUTO) (test code = 40.0 % 42-7 8 SEG%) ABSOLUTE LYMPHOCYTES (AUTO) (test code = LY#) 2.9 10 3/uL 0. 5-4.7 WHITE BLOOD COUNT (test code = WBC) 5.7 10 3/uL 4.0-10.5 RED CELL DISTRIBUTION WIDTH (test code = RDW) 13.4 % 11 .5-14.0 ABSOLUTE BASOPHILS # (AUTO) (test code = BA#) 0.1 10 3/uL 0. 0-0.2 MEAN CORPUSCULAR HGB CONC (test code = MCHC) 32.2 g/dL 32. 0-36.0 LYMPHOCYTES % (AUTO) (test code = LY%) 50.8 % 13-45 BASOPHILS % (AUTO) (test code = BA%) 1.1 % 0-2 HEMOGLOBIN (test code = HGB) 10.7 g/dL 12.0-15.5 MEAN CORPUSCULAR VOLUME (test code = MCV) 81 fl 80-97 ABSOLUTE EOSINOPHILS # (AUTO) (test code = EO#) 0.1 10 3/uL 0.0-0.6 EOSINOPHILS % (AUTO) (test code = EO%) 0.9 % 0-6 ABSOLUTE NEUT (AUTO) (test code = NE#) 2.3 10 3/uL 1.7-8.2 MONOCYTES % (AUTO) (test code = MO%) 7.2 % 3-13 ABSOLUTE MONOCYTES (AUTO) (test code = MO#) 0.4 10 3/uL 0.1- 1.4 hCG, [id number] 08:53:00 Test Item Value Reference Range Comments hCG, Quantitative (test code = 478453) <2.0 mIU/mL CBC with [id number] 08:53:00 Test Item Value Reference Range Comments Platelet Count (test code = 337 K/uL 150-400 820427) MCHC (test code = 535663) 31.9 g/dL 30.0-36.0 Granulocyte % (test code = 46 % 43-77 709567) Hemoglobin (test code = 209512) 11.3 g/dL 12.0-15.0 MPV (test code = 162976) 11.1 fL 8.6-12.4 Absolute Lymph (test code = 3.2 K/uL 0.7-4.0 357922) Hematocrit (test code = 738020) 35.4 % 36.0-46.0 RDW (test code = 816758) 15.0 % 11.5-15.5 Smear Review (test code = Criteria for review not met 030853) Absolute Sullivan (test code = 0.7 K/uL 0.1-1.0 830096) Absolute Gran (test code = 3.4 K/uL 1.7-7.7 122593) Absolute Baso (test code = 0.1 K/uL 0.0-0.1 208782) Lymph % (test code = 472461) 43 % 12-46 WBC (test code = 399200) 7.4 K/uL 4.0-10.5 RBC (test code = 141094) 4.35 MIL/uL 3.87-5.11 Eos % (test code = 310652) 0 % 0-5 MCH (test code = 169778) 26.0 pg 26.0-34.0 MCV (test code = 653308) 81.4 fL 78.0-100.0 Absolute Eos (test code = 0.0 K/uL 0.0-0.7 829954) Baso % (test code = 474673) 1 % 0-1 Sullivan % (test code = 119965) 10 % 3-12 BMP with Estimated [id number] 08:53:00 Test Item Value Reference Range Comments Sodium (test code = 221829) 137 mmol/L 135-146 Est GFR, NonAfrican Slovak (test code = 898366) 86 mL/min >=60 Calcium (test code = 063940) 9.7 mg/dL 8.6-10.2 Potassium (test code = 697142) 4.3 mmol/L 3.5-5.3 Creatinine (test code = 566885) 0.81 mg/dL 0.50-1.10 Est GFR, (test code = 473072) >89 mL/min > =60 Chloride (test code = 767059) 104 mmol/L 98-110 CO2 (test code = 475487) 29 mmol/L 20-31 Glucose (test code = 020962) 84 mg/dL 65-99 BUN (test code = 576806) 18 mg/dL 7-25 URINE CULTURE\S\[id number] 10:40:00 Test Item Value Reference Range Comments MIXED UROGENITAL NASIR (test code = MSF) URINE CULTURE (test code = URC) See Comment Assessments Condition Name Status Diagnosis Date Treating Clinici an Low back pain Active 2020-08-18 10:21:59 Low back pain Active 2020-07-11 11:35:51 Low back pain Active 2020-06-13 13:30:12 Lumbar spondylolisthesis Active 2020-05-23 11:05:42 Spondylolisthesis Active 2020-05-12 09:02:13 Low back pain Active 2020-05-01 09:05:00 Lumbar spondylosis Active 2020-05-01 09:30:53 Spondylolisthesis Active 2020-05-01 09:30:58 Long-term drug therapy Active 2020-03-27 16:45:26 Lumbar spondylosis Active 2020-03-30 08:40:51 Spondylolisthesis Active 2020-03-30 08:40:56 Low back pain Active 2020-02-29 08:29:35 Lumbar spondylosis Active 2020-02-29 08:58:52 Degeneration of lumbar intervertebral Active 2020-02-29 08:58:56 disc Spondylolisthesis Active 2020-02-29 08:59:01 Lumbosacral spondylosis without Active 2019-11-03 12:55 :48 myelopathy Spastic paraparesis Active 2019-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 12:56:10 History of benign neoplasm of brain Active 2019-08-31 1 0:20:44 Lumbosacral spondylosis without Active 2019-09-07 10:31 :48 myelopathy 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-07 10:32:03 Essential (primary) hypertension Active Encntr screen mammogram for malignant Active neoplasm of breast Spondyls w/o myelopathy or Active radiculopathy, lumbosacr region Body mass index (BMI) 25.0-25.9, adult Active Upper motor neurone lesion Active 2019-07-27 09:08:35 Low back strain Active 2019-07-08 08:46:57 Essential (primary) hypertension Active Nonscarring hair loss, unspecified Active Encntr screen mammogram for malignant Active neoplasm of breast Body mass index (BMI) 22.0-22.9, adult Active Acute sinusitis, unspecified Active Allergic rhinitis due to pollen Active Essential (primary) hypertension Active Body mass index (BMI) 22.0-22.9, adult Active Pain in right hand Active Palpitations Active Acute sinusitis, unspecified Active Body mass index (BMI) 22.0-22.9, adult Active Right upper quadrant pain Active Lateral epicondylitis, right elbow Active Gastro-esophageal reflux disease Active without esophagitis Abnormal levels of other serum enzymes Active HSP (hereditary spastic paraplegia) Unknown ([facility]) HSP (hereditary spastic paraplegia) Unknown ([facility]) HSP (hereditary spastic paraplegia) Unknown ([facility]) Encounters Start End Encounter Admission Attending Care Care Encounter Date/Time Date/Time Type Type Clinicians Facility Department ID 2020-08-18 2020-08-18 [facility] [id number]:00:00 00:00:00 MD Ricardo: gilles P.A. P.A. 26591 [address] [place] [address], Ph. 2020-07-11 2020-07-11 [facility], [id number] 00:00:00 00:00:00 Shireen campoverde P.A. P.A. 49562 THOM Turner: [address] [place] [address], Ph. 2020-07-06 2020-07-06 Outpatient TANA MUÑOZ [facility] [id number] 17:06:45 17:06:45 FRANCISCO 2020-06-13 2020-06-13 [facility], [id number] 00:00:00 00:00:00 Ct PA-C: Jessica campoverde.A. P.A. [address] [place] [address], Ph. 2020-05-25 2020-05-25 [facility] [id number] 10:30:57 10:30:57 JADE 2020-05-23 2020-05-23 Tommie Sim [facility], [id number] 00:00:00 00:00:00 MD Ricardo: Jessica campoverde.A. P.A. [address] [place] [address], Ph. 2020-05-12 2020-05-12 [facility] [id number] 00:00:00 00:00:00 gilles Thomas P.A. P.A. 68760 PA-C: [address] [place] [address], Ph. 2020-05-01 2020-05-01 [facility] [id number] 00:00:00 00:00:00 gilles Thomas P.A. P.A. 28766 PA-C: [address] [place] [address], Ph. 2020-03-30 2020-03-30 Artemio [facility], [id number] 00:00:00 00:00:00 gilles Thomas P.A. P.A. 55741 PA-C: [address] [place] [address], Ph. 2020-02-29 2020-02-29 [facility], [id number] 00:00:00 00:00:00 gilles Thomas P.A. P.A. 82526 PA-C: [address] [place] [address], Ph. 2020-02-01 2020-02-01 Outpatient JAC MCGILL [facility] [id number] 09:00:42 09:00:42 2020-02-01 2020-02-01 Outpatient [facility] [id number] 00:00:00 00:00:00 2019-12-30 2019-12-30 Outpatient [facility] [id number] 00:00:00 00:00:00 2019-11-02 2019-11-02 Olaf Gillespie [facility], [id number] 00:00:00 00:00:00 gilles Abdul, P.A. P.A. 28058 MD: [place] [address], Ph. 2019-09-27 2019-09-27 [facility]patient [facility] [id number] 09:53:57 11:02:21 RODOLFO 2019-08-31 2019-08-31 [facility], [id number] 00:00:00 00:00:00 gilles Abdul, P.A. P.A. [id number] MD: [facility] [place] [address], Ph. 2019-08-19 2019-08-19 Outpatient Lorena, [facility] C [id number] 13:30:00 13:30:00 Sergio Benedict [id number] s [id number] and [id number] [facility], 2019-07-27 2019-07-27 Olaf Gillespie [facility], [id number] 00:00:00 00:00:00 gilles Abdul, P.A. P.A. 92010 MD: [place] [address], Ph. 2019-07-08 2019-07-08 [facility], [id number] 00:00:00 00:00:00 gilles Abdul, P.A. P.A. 58066 MD: Zoë [facility] [place] [address], Ph. 2018-06-08 2018-06-08 Outpatient [facility] B [id number] 08:15:00 08:15:00 Sergio Mcmullen [id number] s [id number] and [id number] [facility] [place] 2017-11-17 2017-11-17 Outpatient [facility] 1 [id number] 10:45:00 10:45:00 Sergio Mcmullen [id number] s [id number] and [id number] [facility] [place] 2017-10-17 2017-10-17 Outpatient [facility] F [id number] 15:15:00 15:15:00 Sergio Mcmullen [id number] s [id number] and [id number] [facility] [place] 2017-01-28 2017-01-28 Outpatient [facility] [id number] 10:15:00 10:15:00 Sergio Mcmullen [id number] s [id number] and [id number] [facility] [place] Plan of Treatment Planned Activity Planned Date Details Comments Future Scheduled Test [code = ] Future Scheduled Test [code = ] Future Scheduled Test [code = ] Future Scheduled Test [code = ] Future Scheduled Test [code = ] Future Scheduled Test [code = ] Future Scheduled Test [code = ] Future Scheduled Test [code = ] Future Scheduled Test [code = ] Future Scheduled Test [code = ] Future Scheduled Test [code = ] Future Scheduled Test [code = ] Future Scheduled Test [code = ] Future Scheduled Test [code = ] Future Scheduled Test [code = ] Future Scheduled Test [code = ] Future Appointment 2020-11-28 11:00:00 Jade Godfrey MD, [facility] [place] [address] Future Appointment 2020-10-19 00:00:00 Tommie Silva, Zoë Walsh andree [facility]; , [place] [address] Social History Social Habit Start Date Stop Date Comments History SDOH Alcohol Binge Exposure to SARS-CoV-2 (event) History SDOH Alcohol Std Drinks Tobacco use and exposure 2020-05-26 00:00:00 2020-05-26 00:00:00 Alcohol intake 2020-05-26 00:00:00 2020-05-26 00:00:00 History SDOH Alcohol Frequency 2019-09-27 00:00:00 2019-09-27 00 :00:00 Smoking Status Start Date Stop Date Never smoker 2020-05-26 00:00:00 Vital Signs Vital Name Observation Time Observation Value Comments Height 2020-08-18 00:00:00 62 [in_i] BMI (Body Mass Index) 2020-08-18 00:00:00 24.7 kg/m2 Body Weight 2020-08-18 00:00:00 135 [lb_av] Height 2020-07-11 00:00:00 62 [in_i] Body Weight 2020-06-13 00:00:00 135 [lb_av] Height 2020-06-13 00:00:00 62 [in_i] BMI (Body Mass Index) 2020-06-13 00:00:00 24.7 kg/m2 Systolic blood pressure 2020-05-25 11:28:00 122 mm[Hg] Diastolic blood pressure 2020-05-25 11:28:00 80 mm[Hg] Heart rate 2020-05-25 11:28:00 81 /min Body temperature 2020-05-25 11:28:00 36.22 Ethel Body height 2020-05-25 11:28:00 157.5 cm Body weight 2020-05-25 11:28:00 63.73 kg BMI 2020-05-25 11:28:00 25.70 kg/m2 Height 2020-05-23 00:00:00 62 [in_i] BMI (Body Mass Index) 2020-05-23 00:00:00 24.7 kg/m2 Body Weight 2020-05-23 00:00:00 135 [lb_av] Height 2020-05-01 00:00:00 62 [in_i] BMI (Body Mass Index) 2020-05-01 00:00:00 24.7 kg/m2 Body Weight 2020-05-01 00:00:00 135 [lb_av] Height 2020-03-30 00:00:00 62 [in_i] BMI (Body Mass Index) 2020-03-30 00:00:00 24.7 kg/m2 Body Weight 2020-03-30 00:00:00 135 [lb_av] Height 2020-02-29 00:00:00 62 [in_i] BMI (Body Mass Index) 2020-02-29 00:00:00 24.7 kg/m2 Body Weight 2020-02-29 00:00:00 135 [lb_av] Height 2019-11-02 00:00:00 62 [in_i] BMI (Body Mass Index) 2019-11-02 00:00:00 24.7 kg/m2 Body Weight 2019-11-02 00:00:00 135 [lb_av] Height 2019-08-31 00:00:00 62 [in_i] BMI (Body Mass Index) 2019-08-31 00:00:00 24.7 kg/m2 Body Weight 2019-08-31 00:00:00 135 [lb_av] Height 2019-07-27 00:00:00 62 [in_i] BMI (Body Mass Index) 2019-07-27 00:00:00 24.7 kg/m2 Body Weight 2019-07-27 00:00:00 135 [lb_av] Height 2019-07-08 00:00:00 62 [in_i] BMI (Body Mass Index) 2019-07-08 00:00:00 24.1 kg/m2 Body Weight 2019-07-08 00:00:00 132 [lb_av] Hospital Discharge Instructions 1. 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 Assess and treat and wean from walker when safe Discussion Note: None recorded.Patient Instructions Lisa Dunbar RN - 07/06/2020 1:30 PM [facility] Contact Information: Office Hours: 8am-4:30pm Friday- Friday Office For Appointments call our officeMain Line: [phone] For Medical Concerns or Refills call our Nurse Line: [phone] Please note, it may take up to 48 hours to complete your refill requests and up to one week to complete needed forms. For Urgent Concerns DURING business hours call our Nurse Line: [phone] The Nurse Line is checked throughout the day. For Urgent Concerns AFTER HOURS call our On-Call pager: [phone] For E mergencies, call 911. Your local ED and or Admitting team can reach our on-call pager for medical management advice. documented in this encounterPatient Instructions Marc Aviles RN - 05/25/2020 11:00 AM [facility], our team is committed to providing you compassionate, world-class care. You may receive a patient satisfaction survey by mail or email regarding your visit today. Your opinion is important to me. Your response benefits us all. Patient Education tizanidine Pronunciation: karen bobby Brand: Sheyla What is the most important information I should know about tizanidine? You should not take tizanidine if you are also taking fluvoxamine (Luvox) or ciprofloxacin (Cipro). Do not use tizanidine at a time when you need muscle tone for safe balance and movement during certain activities. What is tizanidine? Tizanidine is a short-acting muscle relaxer. It works by blocking nerve impulses (pain sensations) that are sent to your brain. Tizanidine is used to treat spasticity by temporarily relaxing muscle tone. Tizanidine mayalso be used for purposes not listed in this medication guide. What should I discuss with my healthcare provider before taking tizanidine? You should not use tizanidine if you are allergic to it, or if: you also take the antidepressant fluvoxamine (Luvox); or you also take the antibiotic ciprofloxacin (Cipro). To make sure tizanidine is safe for you, tell your doctor if you have: liver disease; kidney disease; or low blood pressure. It is not known whether this medicine will harm an unborn baby. Tell your doctor if you are or plan to become . It is not known whether tizanidine passes into breast milk or if it could harm a nursing baby. Tell your doctor if you are breast-feeding a baby. How should I take tizanidine? Follow all directions on your prescription label. Your doctor may occasionally change your dose to make sure you get the best results. Do not use this medicine in larger or smaller amounts or for longer than recommended. In most cases you may take tizanidine up to 3 times in one day if needed. Allow 6 to 8 hours to pass between doses. You may take tizanidine with or without food, but take it the same way each time. Switching between taking tizanidinewith food and taking it without food can make the medicine less effective or cause increased side eff ects. Switching between tizanidine tablets and capsules can also cause changes in side effects or how well the medicine works. Taking the tablets with food can increase your blood levels of tizanidine. Taking the capsules with food can decrease your blood levels of tizanidine. Follow your doctor's instructions carefully. After making any changes in how you take tizanidine, contact your doctor if you notice any change in side effects or in how well the medicine works. Tizanidine is a short-acting medication, and its effects will be most noticeable between 1 and 3 hours after you take it. You should take tizanidine only for daily activities that require relief from muscle spasms. Do not take mo re than three doses (36 mg) in a 24-hour period. Too much of this medicine can damage your liver. You will need frequent blood tests to check your liver function. If you stop using tizanidine suddenly after long-term use, you may have withdrawal symptoms such as dizziness, fast heartbeats, tremors, and anxiety. Ask your doctor how to safely stop using this medicine. Store at room temperature away from moisture and heat. What happens if I miss a dose? Take the missed dose as soon as you remember. Skip the missed dose if it is almost time for your next scheduled dose. Do not take extra medicine to make up the missed dose. What happens if I overdose? Seek emergency medical attention or call the Poison Help line at . Overdose symptoms may include weakness, drowsiness, confusion, slow heart rate, shallow breathing, feeling light-headed, or fainting. What should I avoid while taking tizanidine? Do not use tizanidine at a time when you need muscle tone for safe balance and movement during certain activities. In some situations, it may be dangerous for you to have reduced muscle tone. Drinking alcohol with this medicine can cause side effects. This medicine may impair your thinking or reactions. Be careful if you drive or do anything that requires you to be alert. Avoid getting up too fast from a sitting or lying position, or you may feel dizzy. Get up slowly and steady yourself to prevent a fall. What are the possible side effects of tizanidine? Get emergency medical help if you have signs of an allergic reaction: hives; difficult breathing; swelling of your face, lips, tongue, or throat. Call your doctor at once if you have: a light-headed feeling, like you might pass out; weak or shallow breathing; confusion, hallucinations; or pain or burning when you urinate. Common side effects may include: drowsiness, dizziness, weakness; feeling nervous; blurred vision; flu-like symptoms; dry mouth, trouble speaking; abnormal liver function tests; runny nose, sore throat; urination problems; vomiting, constipation; or uncontrolled muscle movements. This is not a complete list of side effects and others may occur. Call your doctor for medical advice about side effects. You may report side effects to FDA at 6-217-XRZ-0596. What other drugs will affect tizanidine? Taking tizanidine with other drugs that make you sleepy or slow your breathing cancause dangerous side effects or . Ask your doctor before taking a sleeping pill, narcotic pain medicine, prescription cough medicine, a muscle relaxer, or medicine for anxiety, depression, or seizures. Tell your doctor about all your current medicines and any you start or stop using, especially: acyclovir; ticlopidine; zileuton; control pills; an antibiotic --ciprofloxacin, gemifloxacin, levofloxacin, moxifloxacin, or ofloxacin; blood pressure medicine --clonidine, guanfacine, methyldopa; heart rhythm medicine --amiodarone, mexiletine, propafenone, verapamil; or st omach acid medicine --cimetidine, famotidine. This list is not complete. Other drugs may interact with tizanidine, including prescription and djgp-tnd-dbbijoe medicines, vitamins, and herbal products. Not all possible interactions are listed in this medication guide. Where can I get more information? Your pharmacist can provide more information about tizanidine. Remember, keep this and all other medicines out of the reach of children, never share your medicines with others, and use this medication only for the indication prescribed. Every effort has been made to ensure that the information providedby [employer]') is accurate, up-to-date, and complete, but no guarantee is made tothat effect. Drug information contained herein may be time sensitive. [employer] information has been compiled for use by healthcare practitioners and consumers in the [place] and therefore [employer] does not warrant that uses outside of the [place] are appropriate, unless specifically indicated otherwise. [employer] drug information does not endorse drugs, diagnose patients or recommend therapy. [employer] drug information is an informational resource designed to assist licensed healthcare practitioners in caring for their patients and/or to serve consumers viewing this service as a supplement to, and not a substitute for, the expertise, skill, knowledge and judgment of healthcare practitioners. The absence of a warning for a given drug or drug combination in no way should be construed to indicate that the drug or drug combination is safe, effective or appropriate for any given patient. [employer] not assume any responsibility for any aspect of healthcare administered with the aid of information [employer] provides. The information contained herein is not intended to cover all possible uses, directions, precautions, warnings, drug interactions, allergic reactions, or adverse effects. If you have questions about the drugs you are taking, check with your doctor, nurse or pharmacist. Copyright 3664-1367 [employer]. Version: 3.01. Revision date: 10/28/2016. Care instructions adapted underlicense by your healthcare professional. If you have questions about a medical condition or this instruction, always ask your healthcare professional. [employer] disclaims any warranty orliability for your use of this information. documented in this encounter1. Low back pain XR, lumbar spine 2. Lumbar spondylosis 3. Spondylolisthesis spondylolysis and spondylolisthesis: exercises hydrocodone 5 mg-acetaminophen 325 mg tablet MRI, lumbar spine, w/o contrast - F/U with Dr. Silva Discussion Note: None recorded.1. Low back pain XR, lumbar spine 2. Lumbar spondylosis 3. Degeneration of lumbar intervertebraldisc 4. Spondylolisthesis spondylolysis and spondylolisthesis: exercises buprenorphine 5 mcg/hour weekly transdermal patch Discussion Note: None recorded.1. Lumbosacral spondylosis without myelopathy 2. Spastic paraparesis Discussion Note: None recorded.Patient educational handouts: No information available.1. History of benign neoplasm of brain MRI, brain, w/wo contrast 2. Lumbosacral spondylosis without myelopathy 3. Spastic paralysis Discussion Note: None recorded. Patient educational handouts: No information available.1. Low back strain Discussion Note: None recorded. Patient educational handouts: No information available.
--- NOTE | 2020-09-21 10:28 | WOMENS IMAGING REPORT ---
EXAM DESCRIPTION: 3D SCREENING MAMMO BILAT IMAGES COMPLETED DATE/TIME: 09/21/2020 9:02 am REASON FOR STUDY: Z12.31 ENCOUNTER FOR SCREENING MAMMOGRAM FOR MALIGNANT NEOPLASM OF BREAST Z12.31 ENCNTR SCREEN MAMMOGRAM FOR MALIGNANT NEOPLASM OF NIGEL COMPARISON: 08/27/2019, 06/10/2018, 05/02/2017 EXAM PARAMETERS: Views: Standard craniocaudal and mediolateral oblique views of each breast recorded using digital acquisition and breast tomosynthesis. Read with the assistance of CAD. [facility] [employer] Version 9.2 LIMITATIONS: None. FINDINGS: No suspicious masses, suspicious calcifications or architectural distortion. No areas of c oncern. IMPRESSION: NEGATIVE MAMMOGRAM. BIRADS 1. BREAST DENSITY: b. There are scattered areas of fibroglandular density. BIRAD: ASSESSMENT: 1 NEGATIVE RECOMMENDATION: ROUTINE SCREENING COMMENT: The patient has been notified of the results by letter per MQSA requirements. Additional no tification policies are in place for contacting patient with suspicious or incomplete findings. Quality ID #[id number]: The [employer] recommends an annual screening mammogram for women aged 40 years or over. This facility utilizes a reminder system to ensure that all patients receive reminder letters, and/or direct phone calls for appointments. This includes reminders for routine scr eening mammograms, diagnostic mammograms, or other Breast Imaging Interventions when appropriate. Th is patient will be placed in the appropriate reminder system. TECHNICAL DOCUMENTATION: FINDING NUMBER: (1) ASSESSMENT: (1) JOB ID: [id number] 2010 [employer]- All Rights Reserved Reading location - IP/workstation name: [email or web address]
== END ==
LOC: WI 08:37
PROVIDERS: ATTEND Family Medicine
DX: Z12.31 Encounter for screening mammogram for malignant neoplasm of breast (principal)
CPT/HCPCS: 77063; 77067